=== PATIENT | female | born 1995 | race Caucasian/White ===

== ENCOUNTER 2017-12-03 11:57 | Outpatient (CLI) | payer OTHER | END 2017-12-03 14:27 | disposition home or self-care (01) | LOC: RX STUDY 11:57 | DX: R10.2 Pelvic and perineal pain (principal) ==

== ENCOUNTER 2017-12-31 21:44 | Emergency (ER) | payer OTHER ==
[~2017-12-31] VITALS: Ht 152.4 cm; Wt 59.0 kg
== END 2018-01-01 02:52 | disposition home or self-care (01) ==
LOC: ER 21:44
DX: O20.0 Threatened abortion (principal); Z34.01 Encounter for supervision of normal first pregnancy, first trimester

== ENCOUNTER 2018-12-28 14:42 | Emergency (ER) | payer OTHER ==
[~2018-12-28] VITALS: Ht 152.4 cm; Wt 61.2 kg
[2018-12-28] MEDS ORDERED: PRENATAL + DHA1 EAC1 (15:20)
== END 2018-12-28 21:12 | disposition home or self-care (01) ==
LOC: ER 14:42
DX: O20.0 Threatened abortion (principal); Z3A.01 Less than 8 weeks gestation of pregnancy; Z37.9 Outcome of delivery, unspecified

== ENCOUNTER 2019-02-05 13:22 | Emergency (ER) | payer OTHER ==
[~2019-02-05] VITALS: Ht 152.4 cm; Wt 61.7 kg
[~2019-02-05 13:22] MED LIST: PRENATAL + DHA1 EAC1
== END 2019-02-05 17:28 | disposition home or self-care (01) ==
LOC: ER 13:22
DX: O46.8X2 Other antepartum hemorrhage, second trimester (principal); O21.0 Mild hyperemesis gravidarum

== ENCOUNTER 2019-07-18 01:17 | Inpatient (IN) | payer OTHER ==
[~2019-07-18] VITALS: Ht 152.4 cm; Wt 71.7 kg
[2019-07-22] MEDS ORDERED: HYDROXYZINE PAM50 MG PO (06:57)
[2019-07-22] MEDS ORDERED: NIFEDIPINE10 MG PO (06:57)
== END 2019-07-22 11:14 | disposition home or self-care (01) | DRG 833 ==
LOC: OBS/DEL 01:17 → LDR 13:13 → OB/GYN 07-19 11:10
PROVIDERS: ADMIT Obstetrics & Gynecology
PROC: 4A1HXFZ Monitoring of Products of Conception, Cardiac Rhythm, External Approach (ICD-10-PCS; principal; 2019-07-18)
PROC: BY4FZZZ Ultrasonography of Third Trimester, Single Fetus (ICD-10-PCS; 2019-07-18)
DX: O47.03 False labor before 37 completed weeks of gestation, third trimester (principal); Z3A.35 35 weeks gestation of pregnancy

== ENCOUNTER 2019-08-16 05:41 | Inpatient (IN) | payer OTHER ==
[~2019-08-16] VITALS: Ht 152.4 cm; Wt 2.7 kg
[~2019-08-16 05:41] MED LIST changes: +HYDROXYZINE PAM50 MG PO; +NIFEDIPINE10 MG PO
== END 2019-08-19 12:21 | disposition home or self-care (01) | DRG 788 ==
LOC: OB/GYN 05:41 → LDR 05:41 → OB/GYN 15:58
PROVIDERS: ADMIT Obstetrics & Gynecology
PROC: 4A1HXFZ Monitoring of Products of Conception, Cardiac Rhythm, External Approach (ICD-10-PCS; 2019-08-16)
PROC: 3E033VJ Introduction of Other Hormone into Peripheral Vein, Percutaneous Approach (ICD-10-PCS; 2019-08-16)
PROC: 10D00Z1 Extraction of Products of Conception, Low, Open Approach (ICD-10-PCS; principal; 2019-08-16 13:00)
DX: O62.0 Primary inadequate contractions (principal); Z3A.39 39 weeks gestation of pregnancy; Z37.0 Single live birth

== ENCOUNTER 2022-01-01 20:06 | Emergency (ER) | payer OTHER ==
[~2022-01-01] VITALS: Ht 160 cm; Wt 90.7 kg
== END 2022-01-02 | disposition home or self-care (01) ==
LOC: ER 20:06
DX: J06.9 Acute upper respiratory infection, unspecified (principal)

== ENCOUNTER → 2022-02-23 | Emergency (ER) | payer OTHER | END | disposition left against medical advice (07) | LOC: ER 20:07 | DX: Z53.21 Procedure and treatment not carried out due to patient leaving prior to being seen by health care provider (principal) ==

== ENCOUNTER 2022-03-23 11:00 | Emergency (ER) | payer OTHER ==
[~2022-03-23] VITALS: Ht 152.4 cm; Wt 65.8 kg
== END 2022-03-23 23:13 | disposition home or self-care (01) ==
LOC: ER 11:00
DX: K52.89 Other specified noninfective gastroenteritis and colitis (principal)

== ENCOUNTER 2023-03-26 09:23 | Emergency (ER) | payer OTHER ==
[~2023-03-26] VITALS: Ht 175.3 cm; Wt 68.0 kg
[2023-03-26] MEDS ORDERED: DICLOFENAC SODI75 MG PO (11:21)
== END 2023-03-26 11:56 | disposition home or self-care (01) ==
LOC: ER 09:24 → EMR PED 09:49 → ER 09:49
DX: G44.209 Tension-type headache, unspecified, not intractable (principal)

== ENCOUNTER 2023-04-11 10:19 | Emergency (ER) | payer OTHER ==
[~2023-04-11] VITALS: Ht 152.4 cm; Wt 68.0 kg
[~2023-04-11 10:19] MED LIST changes: +DICLOFENAC SODI75 MG PO
== END 2023-04-11 12:43 | disposition left against medical advice (07) ==
LOC: ER 10:19
DX: H57.11 Ocular pain, right eye (principal); R51.9 Headache, unspecified